=== PATIENT | male | born 1930 | race Caucasian/White ===

== ENCOUNTER 2018-05-13 12:25 | Outpatient (CLI) | payer SELFPAY | END 2018-05-13 12:26 | disposition EMS.NT | LOC: EMS 12:25 | PROVIDERS: ATTEND Surgery | DX: R45.851 Suicidal ideations (principal) ==

== ENCOUNTER 2018-07-27 11:38 | Emergency (ER) | payer MEDICARE ==
[2018-07-27 12:20] LABS: BASOPHILS # (AUTO) 0.1 10^3/uL (0.0-0.1); BASOPHILS % (AUTO) 0.6 %; EOSINOPHILS % (AUTO) 0.2 %; HGB - HEMOGLOBIN 14.7 g/dL (14.0-18.0); LYMPHOCYTES # (AUTO) 0.7 10^3/uL (1.5-3.5); LYMPHOCYTES % (AUTO) 7.6 %; MEAN CORPUSCULAR HEMOGLOBIN 33.8 pg (27.0-31.0); MEAN CORPUSCULAR HGB CONC 33.4 g/dL (32.0-36.0); MEAN PLATELET VOLUME 8.4 fL (7.4-11.4); MONOCYTES # (AUTO) 0.7 10^3/uL (0.0-1.0); MONOCYTES % (AUTO) 8.2 %; NEUTROPHILS # (AUTO) 7.6 10^3/uL (1.5-6.6); NEUTROPHILS % (AUTO) 83.4 %; PLT - PLATELET COUNT 243 10^3/uL (130-450); RED BLOOD COUNT 4.35 10^6/uL (4.70-6.10); RED CELL DISTRIBUTION WIDTH 13.8 % (12.0-15.0); WHITE BLOOD COUNT 9.1 x10^3/uL (4.8-10.8)
--- NOTE | 2018-07-27 12:25 | ED Physician Documentation ---
PD HPI CHEST PAIN - Stated complaint Stated Complaint: SOA, CHEST PX - Chief complaint Chief Complaint: Cardiac - History obtained from History obtained from: Patient - History of Present Illness Timing - onset: Other (This is an 88-year-old gentleman with no personal history of heart disease although he is a strong family history of such and had 2 brothers that in their 50s of heart disease. He is been short of breath for a week, it is worse when laying flat and since yesterday he said pretty constant chest pain since noon yesterday that is also worse when rate lying flat. Severe but declines pain medication for it. He describes it as a sharp pain radiating straight through to the back. There is no associated cough. He denies exertional pain. He does feel like he is not getting enough oxygen. He has had pedal edema that is symmetric for about a day.) Review of Systems Ten Systems: 10 systems reviewed and negative Constitutional: denies: Fever, Chills Nose: denies: Rhinorrhea / runny nose, Congestion Throat: denies: Sore throat Cardiac: reports: Chest pain / pressure, Pedal edema. denies: Palpitations, Calf pain Respiratory: reports: Dyspnea. denies: Cough PD PAST MEDICAL HISTORY - Past Medical History Past Medical History: Yes Cardiovascular: Hypertension, High cholesterol Musculoskeletal: Chronic back pain - Past Surgical History Ortho: Spine surgery - Allergies Allergies/Adverse Reactions: Allergies Allergy/AdvReac Type Severity Reaction Status Date / Time No Known Drug Allergies Allergy Verified 07/27/18 11:53 - Living Situation Living Situation: reports: Alone - Social History Does the pt smoke?: No Does the pt drink ETOH?: No Does the pt have substance abuse?: No - Family History Family history: reports: CAD PD ED PE NORMAL - Vitals Vital signs reviewed: Yes - General General: Alert and oriented X 3, No acute distress - HEENT HEENT: PERRL, EOMI - Neck Neck: Supple, no meningeal sign, No bony TTP - Cardiac Cardiac: Other (Frequent extrasystoles with a 2 out of 6 decrescendo holosystolic murmur heard best at the left lower sternal border) - Respiratory Respiratory: No respiratory distress, Other (Mild rales at both bases) - Abdomen Abdomen: Soft, Non tender - Back Back: No CVA TTP, No spinal TTP - Derm Derm: Normal color, Warm and dry - Extremities Extremities: Other (Mild pitting pedal edema to the ankles, symmetric) - Neuro Neuro: Alert and oriented X 3, Normal speech Results - Vitals Vitals: Vital Signs - 24 hr 07/27/18 07/27/18 07/27/18 11:49 12:02 12:41 Temperature 36.9 C Heart Rate 67 94 Respiratory 16 27 H Rate Blood Pressure 156/82 H 164/91 H Blood Pressure 147/111 H [Right] O2 Saturation 94 94 07/27/18 07/27/18 07/27/18 13:14 13:44 14:07 Temperature Heart Rate 92 76 85 Respiratory 20 16 21 Rate Blood Pressure 147/111 H 152/93 H 149/94 H Blood Pressure [Right] O2 Saturation 98 98 96 07/27/18 07/27/18 07/27/18 14:30 15:06 15:49 Temperature Heart Rate 74 75 74 Respiratory 16 21 18 Rate Blood Pressure 143/91 H 136/82 H 154/88 H Blood Pressure [Right] O2 Saturation 96 98 98 Oxygen O2 Source Room air - EKG (time done) 1149 Rate: Rate (enter#) (108) Rhythm: NSR (with PAC and PVCs) Intervals: Other (LAFB) Ischemia: Non specific changes (Some ischemic biphasic T waves mostly V2 through V4, no priors available.) Computer interpretation: Agree with computer - Labs Labs: Laboratory Tests 07/27/18 07/27/18 07/27/18 12:03 12:03 12:03 WBC 9.1 RBC 4.35 L Hgb 14.7 Hct 43.9 MCV 101.0 H MCH 33.8 H MCHC 33.4 RDW 13.8 Plt Count 243 MPV 8.4 Neut # (Auto) 7.6 H Lymph # (Auto) 0.7 L [place] # (Auto) 0.7 Eos # (Auto) 0.0 Baso # (Auto) 0.1 Absolute Nucleated RBC 0.00 Nucleated RBC % 0.0 Manual Slide Review Indicated Platelet Estimate NORMAL (130-450,000) Platelet Morphology RARE GIANT PLATELETS RBC Morph Micro Appear NORMAL APPEARANCE Sodium 137 Potassium 3.7 Chloride 96 L Carbon Dioxide 25 Anion Gap 16.0 H BUN 31 H Creatinine 1.3 H Estimated GFR (MDRD) 52 L Glucose 161 H Calcium 9.1 Total Bilirubin 1.9 H AST 150 H ALT 27 Alkaline Phosphatase 67 Troponin I 21.73 H* B-Natriuretic Peptide Total Protein 7.5 Albumin 3.8 Globulin 3.7 Albumin/Globulin Ratio 1.0 Lipase 23 Urine Color Urine Clarity Urine pH Ur Specific [place] Urine Protein Urine Glucose (UA) Urine Ketones Urine Occult Blood Urine Nitrite Urine Bilirubin Urine Urobilinogen Ur Leukocyte Esterase Urine RBC Urine WBC Ur Squamous Epith Cells Urine Bacteria Ur Microscopic Review Urine Culture Comments 07/27/18 07/27/18 12:03 14:05 WBC RBC Hgb Hct MCV MCH MCHC RDW Plt Count MPV Neut # (Auto) Lymph # (Auto) [place] # (Auto) Eos # (Auto) Baso # (Auto) Absolute Nucleated RBC Nucleated RBC % Manual Slide Review Platelet Estimate Platelet Morphology RBC Morph Micro Appear Sodium Potassium Chloride Carbon Dioxide Anion Gap BUN Creatinine Estimated GFR (MDRD) Glucose Calcium Total Bilirubin AST ALT Alkaline Phosphatase Troponin I B-Natriuretic Peptide 1349 H Total Protein Albumin Globulin Albumin/Globulin Ratio Lipase Urine Color YELLOW Urine Clarity CLEAR Urine pH 6.0 Ur Specific [place] 1.020 Urine Protein 30 H Urine Glucose (UA) NEGATIVE Urine Ketones 15 H Urine Occult Blood TRACE-INTA Urine Nitrite NEGATIVE Urine Bilirubin NEGATIVE Urine Urobilinogen 0.2 (NORMAL) Ur Leukocyte Esterase NEGATIVE Urine RBC 0-5 Urine WBC 0-3 Ur Squamous Epith Cells NONE SEEN Urine Bacteria Few Ur Microscopic Review INDICATED Urine Culture Comments NOT INDICATED - Rads (name of study) 1v chest Radiology: EMP read contemporaneously (Small right pleural effusion, mild CHF. Nodular density left lateral lung base up to 2.3 cm, needs follow-up.) PD MEDICAL DECISION MAKING - ED course ED course: This is an 88-year-old gentleman who is had several days worth of shortness of breath which proceeded chest pain which is been going on for about 24 hours fairly constantly now. Its a sharp pain radiating to the back. His EKG is isc hemic but not a STEMI. He has a murmur, he says he was aware of a murmur as a child so it is not clear if this is new or old. Aortic dissection is considered but given the height of the troponin and lack of wide mediastinum on x-ray this is considered much less likely and is treated medically for non-STEMI pending transfer to a cardiac capable facility. Spoke with Dr. Murray, cardiology at [facility] and she will see in consult, defers to the medicine service there for admission. Agrees with current management.. Accepted by Dr. Lund to the hospitalist service at [facility]. He is stable for transfer. Cobras were completed. He received heparin bolus and drip, aspirin, oral metoprolol and Nitropaste. I was notified shortly thereafter that [facility] could not accept this gentleman due to some staffing issues and [facility] was called. Spoke with the tool analyst [facility], Dr. Jennings who will consult. Accepted by Dr. Howell to [facility] at 1330 and cobras were updated. However the patient did not want to go to [facility] there. He would like to be transferred to [place] and they were called at 134[address]. Sp[address] with [address] Kohler at [facility] who is accepting. He was pain-free after the above interventions. - Critical Care Time(min): 45 Time Includes: Direct patient care, Review records, Reassess patient, Document care, Coordinate care, Medical consult Procedures included in critical care time: Peripheral IV Procedures excluded from critical care time: EKG Departure - Departure Disposition: 02 Transfer Acute Care Hosp Clinical Impression: NSTEMI (non-ST elevated myocardial infarction), Pulmonary nodule Condition: Critical Discharge Date/Time: 07/27/18 16:05
[2018-07-27 12:32] LABS: ALBUMIN 3.8 g/dL (3.2-5.5); BILIRUBIN,TOTAL 1.9 mg/dL (0.2-1.0); CALCIUM 9.1 mg/dL (8.5-10.3); CREATININE 1.3 mg/dL (0.6-1.2); TOTAL PROTEIN 7.5 g/dL (6.7-8.2)
[2018-07-27 12:34] LABS: PLATELET ESTIMATE, MANUAL NORMAL (130-450,000) (NORMAL); PLATELET MORPHOLOGY RARE GIANT PLATELETS (NORMAL); RBC MORPHOLOGY (MULTIPLE) NORMAL APPEARANCE (NORMAL)
--- NOTE | 2018-07-27 12:39 | XRAY Report ---
Reason: chest pain Procedure Date: 07/27/2018 Accession Number: [id number] / [id number] Procedure: XR - Chest 1 View X-Ray CPT Code: 77644 FULL RESULT: EXAM: CHEST RADIOGRAPHY EXAM DATE: 07/27/2018 12:11 PM. CLINICAL HISTORY: Chest pain. COMPARISON: None. TECHNIQUE: 1 view. FINDINGS: Lungs/Pleura: Mild vascular and interstitial prominence with mild increase in bibasilar markings and possible small right pleural effusion. There are focal nodular irregular densities at the left lateral lung base with a dominant 2.3 cm focus. A left lower perihilar nodular density could be vascular in nature but pulmonary nodule or central mass/adenopathy are not excluded. No pneumothorax. Mediastinum: The heart is enlarged. Other: None. IMPRESSION: 1. Mild vascular and interstitial prominence, mild bibasilar opacity, probable very small right pleural effusion and mild cardiac enlargement demonstrated. CHF could be considered. 2. Irregular nodular densities at the left lateral lung base measure up to 2.3 cm. Possible left infrahilar nodular density, as discussed above. Short-term radiographic follow-up could be performed to confirm resolution. If the findings do not resolve, or if further evaluation were indicated at this time, chest CT imaging with contrast would be recommended. RADIA
[2018-07-27] MEDS ORDERED: HEPARIN 25000UNITS/500ML (D5W) 25,000 UNIT/500 ML BAG IV STA (12:42)
[2018-07-27] MEDS ORDERED: METOPROLOL TARTRATE 50 MG TABLET PO STA (12:42)
[2018-07-27] MEDS ORDERED: HEPARIN 5,000 UNIT/ML VIAL IVP STA (12:42)
[2018-07-27] MEDS ORDERED: NITROGLYCERIN 2% PASTE TOP STA (12:42)
[2018-07-27] MEDS ORDERED: IOVERSOL 320 100 ML VIAL IVP ONE (12:42)
[2018-07-27] MEDS ORDERED: ASPIRIN CHEW 81 MG TABLET PO STA (12:42)
[2018-07-27] MEDS ORDERED: FUROSEMIDE 20 MG/2 ML VIAL IVP STA (12:48)
[2018-07-27 14:15] LABS: BILIRUBIN,URINE NEGATIVE (NEGATIVE); GLUCOSE, URINE (UA) NEGATIVE (NEGATIVE); KETONES,URINE (UA) 15 mg/dL (NEGATIVE); LEUKOCYTE ESTERASE, URINE NEGATIVE (NEGATIVE); NITRITE,URINE NEGATIVE (NEGATIVE); OCCULT BLOOD,URINE TRACE-INTA (NEGATIVE); PROTEIN,URINE 30 mg/dL (NEGATIVE); UROBILINOGEN,URINE 0.2 (NORMAL) E.U./dL (NORMAL)
[2018-07-27 14:16] LABS: CLARITY,URINE CLEAR (CLEAR)
[2018-07-27 14:25] LABS: BACTERIA,URINE Few /HPF (None Seen); RBC,URINE 0-5 /HPF (0-5); SQUAMOUS EPITHELIAL CELL,UR NONE SEEN (<= Few)
[2018-07-27 15:50] VITALS: BP 154/88
== END 2018-07-27 16:05 | disposition short-term general hospital (02) ==
LOC: ED 11:38
DX: I21.4 Non-ST elevation (NSTEMI) myocardial infarction (principal); R91.1 Solitary pulmonary nodule; I10 Essential (primary) hypertension
CPT/HCPCS: 36415; 71045; 80053; 81001; 83690; 83880; 84484; 85025; 93005; 96374; 96375; 99284; 99291; A9270; 81003; 87086

== ENCOUNTER 2018-08-19 14:45 | Outpatient (CLI) | payer MEDICARE ==
[2018-08-19 18:47] LABS: CREATININE 1.2 mg/dL (0.6-1.2)
[2018-08-19 18:49] LABS: HGB - HEMOGLOBIN 13.8 g/dL (14.0-18.0); MEAN CORPUSCULAR HEMOGLOBIN 34.3 pg (27.0-31.0); MEAN CORPUSCULAR HGB CONC 33.6 g/dL (32.0-36.0); MEAN CORPUSCULAR VOLUME 102.1 fL (80.0-94.0); MEAN PLATELET VOLUME 9.6 fL (7.4-11.4); RED BLOOD COUNT 4.02 10^6/uL (4.70-6.10); RED CELL DISTRIBUTION WIDTH 13.6 % (12.0-15.0); WHITE BLOOD COUNT 6.9 x10^3/uL (4.8-10.8)
== END 2018-08-19 14:46 | disposition home or self-care (01) ==
LOC: LAB.WCP 14:45
PROVIDERS: ATTEND Family Medicine
DX: I50.9 Heart failure, unspecified (principal)
CPT/HCPCS: 36415; 80048; 83880; 85027

== ENCOUNTER 2018-09-04 11:27 | Outpatient (CLI) | payer MEDICARE ==
[2018-09-04 19:08] LABS: HGB - HEMOGLOBIN 13.1 g/dL (14.0-18.0); MEAN CORPUSCULAR HEMOGLOBIN 33.7 pg (27.0-31.0); MEAN CORPUSCULAR HGB CONC 31.3 g/dL (32.0-36.0); MEAN CORPUSCULAR VOLUME 107.5 fL (80.0-94.0); MEAN PLATELET VOLUME 11.1 fL (7.4-11.4); RED BLOOD COUNT 3.89 10^6/uL (4.70-6.10); RED CELL DISTRIBUTION WIDTH 13.9 % (12.0-15.0); WHITE BLOOD COUNT 6.3 x10^3/uL (4.8-10.8)
[2018-09-04 19:53] LABS: CREATININE 1.3 mg/dL (0.6-1.2)
== END 2018-09-04 11:28 | disposition home or self-care (01) ==
LOC: LAB.WCP 11:27
PROVIDERS: ATTEND Family Medicine
DX: R06.09 Other forms of dyspnea (principal)
CPT/HCPCS: 36415; 80048; 83880; 85027

== ENCOUNTER 2018-10-21 08:00 | Outpatient (CLI) | payer MEDICARE ==
[2018-10-21 19:20] LABS: ABSOLUTE RETICS # AUTO 0.054 10^6/uL (0.020-0.110); BASOPHILS % (AUTO) 0.6 %; EOSINOPHILS # (AUTO) 0.1 10^3/uL (0.0-0.7); EOSINOPHILS % (AUTO) 2.6 %; HGB - HEMOGLOBIN 12.7 g/dL (14.0-18.0); LYMPHOCYTES % (AUTO) 17.5 %; MEAN CORPUSCULAR HEMOGLOBIN 34.6 pg (27.0-31.0); MEAN CORPUSCULAR VOLUME 108.2 fL (80.0-94.0); MEAN PLATELET VOLUME 10.4 fL (7.4-11.4); MONOCYTES # (AUTO) 0.8 10^3/uL (0.0-1.0); MONOCYTES % (AUTO) 15.1 %; NEUTROPHILS # (AUTO) 3.5 10^3/uL (1.5-6.6); NEUTROPHILS % (AUTO) 63.8 %; PLT - PLATELET COUNT 218 10^3/uL (130-450); RED BLOOD COUNT 3.67 10^6/uL (4.70-6.10); RED CELL DISTRIBUTION WIDTH 14.2 % (12.0-15.0); WHITE BLOOD COUNT 5.4 x10^3/uL (4.8-10.8)
[2018-10-21 19:34] LABS: CALCIUM 9.2 mg/dL (8.5-10.3); CREATININE 1.3 mg/dL (0.6-1.2)
[2018-10-21 19:50] LABS: FERRITIN 129.4 ng/mL (23.9-336.2)
[2018-10-21 19:53] LABS: FOLATE 16.91 ng/mL (5.90 - >24.8)
== END 2018-10-21 23:59 | disposition home or self-care (01) ==
LOC: LAB.N 08:00
PROVIDERS: ATTEND Family Medicine
DX: D64.9 Anemia, unspecified (principal); I38 Endocarditis, valve unspecified; I50.9 Heart failure, unspecified; R06.09 Other forms of dyspnea
CPT/HCPCS: 36415; 80048; 82607; 82728; 82746; 83540; 83880; 84466; 85025; 85027; 85044

== ENCOUNTER 2018-12-12 12:05 | Outpatient (CLI) | payer MEDICARE, OTHER ==
[2018-12-12 18:54] LABS: HGB - HEMOGLOBIN 12.6 g/dL (14.0-18.0); MEAN CORPUSCULAR HEMOGLOBIN 34.6 pg (27.0-31.0); MEAN CORPUSCULAR HGB CONC 32.4 g/dL (32.0-36.0); MEAN CORPUSCULAR VOLUME 106.9 fL (80.0-94.0); MEAN PLATELET VOLUME 10.8 fL (7.4-11.4); RED BLOOD COUNT 3.64 10^6/uL (4.70-6.10); RED CELL DISTRIBUTION WIDTH 13.5 % (12.0-15.0); WHITE BLOOD COUNT 5.7 x10^3/uL (4.8-10.8)
[2018-12-12 19:18] LABS: CALCIUM 9.3 mg/dL (8.5-10.3); CREATININE 1.5 mg/dL (0.6-1.2)
== END 2018-12-12 23:59 | disposition home or self-care (01) ==
LOC: LAB.N 12:05
PROVIDERS: ATTEND Family Medicine
DX: I38 Endocarditis, valve unspecified (principal); R06.09 Other forms of dyspnea
CPT/HCPCS: 36415; 80048; 83880; 85027

== ENCOUNTER 2019-01-02 10:47 | Outpatient (CLI) | payer MEDICARE, OTHER ==
[2019-01-02 12:10] LABS: MEAN CORPUSCULAR HEMOGLOBIN 34.1 pg (27.0-31.0); MEAN CORPUSCULAR HGB CONC 32.2 g/dL (32.0-36.0); MEAN PLATELET VOLUME 10.4 fL (7.4-11.4); RED BLOOD COUNT 3.81 10^6/uL (4.70-6.10); RED CELL DISTRIBUTION WIDTH 14.6 % (12.0-15.0); WHITE BLOOD COUNT 4.9 x10^3/uL (4.8-10.8)
[2019-01-02 12:23] LABS: CALCIUM 9.1 mg/dL (8.5-10.3); CREATININE 1.8 mg/dL (0.6-1.2)
== END 2019-01-02 23:59 | disposition home or self-care (01) ==
LOC: LAB.N 10:47
PROVIDERS: ATTEND Family Medicine
DX: R06.09 Other forms of dyspnea (principal)
CPT/HCPCS: 36415; 80048; 83880; 85027

== ENCOUNTER 2019-01-17 14:45 | Emergency (ER) | payer MEDICARE, OTHER ==
--- NOTE | 2019-01-17 15:16 | ED Physician Documentation ---
PD HPI CHEST PAIN - Stated complaint Stated Complaint: SOA, LE SWELLING, ABD PX - Chief complaint Chief Complaint: Cardiac - History obtained from History obtained from: Patient - History of Present Illness Timing - onset: Other (This is an 88-year-old gentleman who I sent to the [place] about 5 months ago for CHF. I will try to get the discharge summary, but per his description he had some sort of valvular disease, he has not had any intervention yet but he was referred to a Dr. Hanson in [place] who at least online looks like he is a TAVR specialist. Over the last 6 days he is gained a pound a day, he has shortness of breath at rest and orthopnea as well as significant pedal edema abdominal edema as well. He denies any chest pain.) Review of Systems Ten Systems: 10 systems reviewed and negative Constitutional: reports: Fatigue Nose: denies: Rhinorrhea / runny nose Throat: denies: Sore throat Cardiac: reports: Pedal edema, Calf pain. denies: Chest pain / pressure, Palpitations Respiratory: reports: Dyspnea. denies: Cough GI: reports: Abdominal Swelling. denies: Abdominal Pain PD PAST MEDICAL HISTORY - Past Medical History Cardiovascular: Hypertension, High cholesterol Respiratory: None Neuro: None Endocrine/Autoimmune: None GI: None : None HEENT: None Psych: None Musculoskeletal: Chronic back pain Derm: None - Past Surgical History Past Surgical History: Yes Ortho: Spine surgery - Present Medications Home Medications: Ambulatory Orders Medication Instructions Recorded Confirmed Apixaban [Eliquis] 2.5 mg PO BID 01/17/19 01/17/19 Aspirin 81 mg PO DAILY 01/17/19 01/17/19 Atorvastatin Calcium [Lipitor] 80 mg PO DAILY PM 01/17/19 01/17/19 Furosemide 1.5 tab PO BID 01/17/19 01/17/19 Gabapentin 2 cap PO DAILY PM 01/17/19 01/17/19 Potassium Gluconate 99 mg PO DAILY 01/17/19 01/17/19 Tamsulosin HCl [Flomax] 2 cap PO DAILY PM 01/17/19 01/17/19 metOLazone [Metolazone] 2.5 mg PO UD 01/17/19 01/17/19 - Allergies Allergies/Adverse Reactions: Allergies Allergy/AdvReac Type Severity Reaction Status Date / Time No Known Drug Allergies Allergy Verified 01/17/19 14:51 - Social History Does the pt smoke?: No Smoking Status: Never smoker Does the pt drink ETOH?: No Does the pt have substance abuse?: No - Family History Family history: reports: Non contributory - Immunizations Immunizations are current?: Yes - POLST Patient has POLST: No PD ED PE NORMAL - Vitals Vital signs reviewed: Yes - General General: Alert and oriented X 3, No acute distress, Other (Looks younger than stated age) - HEENT HEENT: PERRL, EOMI - Neck Neck: Supple, no meningeal sign, No bony TTP, Other (Significant JVD up to the angle of the jaw) - Cardiac Cardiac: Other (Somewhat diminished heart sounds with a regular rate,Subtle systolic decrescendo murmur) - Respiratory Respiratory: Other (Diminished at the bases with rales at the bases) - Abdomen Abdomen: Non tender, Other (mod distended) - Extremities Extremities: Other (3+ symmetric pitting pedal edema) - Neuro Neuro: Alert and oriented X 3, Normal speech Results - Vitals Vitals: Vital Signs - 24 hr 01/17/19 01/17/19 14:47 16:20 Temperature 36.8 C Heart Rate 91 92 Respiratory 20 22 Rate Blood Pressure 124/81 H 126/77 O2 Saturation 95 98 Oxygen O2 Source Room air - EKG (time done) 1500 Rate: Rate (enter#) Rhythm: NSR (with occ pvc) [place]: Normal Intervals: Prolonged OR QRS: Normal, Low voltage Ischemia: Non specific changes (Flat T waves throughout, small inferior and anterior Q waves.). No: ST elevation c/w ischemia Computer interpretation: Agree with computer - Labs Labs: Laboratory Tests 01/17/19 01/17/19 01/17/19 15:36 15:36 15:36 WBC 5.8 RBC 3.81 L Hgb 13.2 L Hct 40.6 L MCV 106.6 H MCH 34.6 H MCHC 32.5 RDW 15.1 H Plt Count 172 MPV 10.3 Neut # (Auto) 4.3 Lymph # (Auto) 0.8 L [place] # (Auto) 0.6 Eos # (Auto) 0.1 Baso # (Auto) 0.0 Absolute Nucleated RBC 0.00 Nucleated RBC % 0.0 Sodium 138 Potassium 3.8 Chloride 96 L Carbon Dioxide 31 Anion Gap 11.0 BUN 42 H Creatinine 1.8 H Estimated GFR (MDRD) 36 L Glucose 142 H Calcium 9.1 Total Bilirubin 2.1 H AST 38 ALT 24 Alkaline Phosphatase 99 Troponin I High Sens 37.8 H* B-Natriuretic Peptide Total Protein 7.5 Albumin 3.9 Globulin 3.6 Albumin/Globulin Ratio 1.1 Lipase 32 01/17/19 15:36 WBC RBC Hgb Hct MCV MCH MCHC RDW Plt Count MPV Neut # (Auto) Lymph # (Auto) [place] # (Auto) Eos # (Auto) Baso # (Auto) Absolute Nucleated RBC Nucleated RBC % Sodium Potassium Chloride Carbon Dioxide Anion Gap BUN Creatinine Estimated GFR (MDRD) Glucose Calcium Total Bilirubin AST ALT Alkaline Phosphatase Troponin I High Sens B-Natriuretic Peptide 1978 H Total Protein Albumin Globulin Albumin/Globulin Ratio Lipase - Rads (name of study) 1v chest Radiology: EMP read contemporaneously (Cardiomegaly with bilateral effusions and evidence of edema and heart failure) PD MEDICAL DECISION MAKING - ED course ED course: Records from [facility] received and reviewed, discharge summary from August 03 of this year. Echocardiogram showed moderate left ear and EF 40%. Cardiac cath initially showed three-vessel disease, CT surgery was consulted for possible CABG and aortic valve replacement and felt he was not a good open surgical candidate. Went to catheterization again later after medical management which showed resolution of LAD disease and improvement in left main disease and did not need stenting. He was diuresed in the hospital. Later left heart cath was concerning for severe aortic stenosis with an aortic valve area of 0.2 cm. Plan was for TAVR at a later date, he needed a stress echo after that and it sounds like he was lost to follow-up after that. 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 Moderate circumflex disease with adequate IFR, severely elevated LVEDP at 23 mmHg. 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 I gave him a small dose of Lasix not wanting to confuse his hemodynamics too much or cause him decompensation. [facility] was called to help us arrange for transfer at 4:05 PM. Troponin noted, this is an inconsequential amount compared to the troponin he had in July of this year, in the interim we have converted to high-sensitivity troponin. His troponin in July was 21.73 ng/ml, today it is 37 pg/mL. Spoke with Dr. Kwan at [facility], he will try to arrange for a bed in [place]. We initially spoke at 4:[address] Maher to [facility] at 5 PM and cobras were completed. He is stable for transport to a higher level of care for cardiology consultation. Departure - Departure Disposition: 02 Transfer Acute Care Hosp Clinical Impression: Congestive heart failure Qualifiers: Heart failure type: systolic Heart failure chronicity: acute on chronic Qualified Code(s): I50.23 - Acute on chronic systolic (congestive) heart failure Aortic stenosis Qualifiers: Cardiac valve disease etiology: nonrheumatic Qualified Code(s): I35.0 - Nonrheumatic aortic (valve) stenosis Condition: Serious
[2019-01-17] MEDS ORDERED: FUROSEMIDE 20 MG/2 ML VIAL IVP STA (15:21)
[2019-01-17 15:41] LABS: BASOPHILS % (AUTO) 0.3 %; EOSINOPHILS # (AUTO) 0.1 10^3/uL (0.0-0.7); EOSINOPHILS % (AUTO) 1.6 %; HGB - HEMOGLOBIN 13.2 g/dL (14.0-18.0); LYMPHOCYTES # (AUTO) 0.8 10^3/uL (1.5-3.5); LYMPHOCYTES % (AUTO) 13.5 %; MEAN CORPUSCULAR HEMOGLOBIN 34.6 pg (27.0-31.0); MEAN CORPUSCULAR HGB CONC 32.5 g/dL (32.0-36.0); MEAN CORPUSCULAR VOLUME 106.6 fL (80.0-94.0); MEAN PLATELET VOLUME 10.3 fL (7.4-11.4); MONOCYTES # (AUTO) 0.6 10^3/uL (0.0-1.0); MONOCYTES % (AUTO) 10.7 %; NEUTROPHILS # (AUTO) 4.3 10^3/uL (1.5-6.6); NEUTROPHILS % (AUTO) 73.6 %; PLT - PLATELET COUNT 172 10^3/uL (130-450); RED BLOOD COUNT 3.81 10^6/uL (4.70-6.10); RED CELL DISTRIBUTION WIDTH 15.1 % (12.0-15.0); WHITE BLOOD COUNT 5.8 x10^3/uL (4.8-10.8)
--- NOTE | 2019-01-17 15:51 | XRAY Report ---
Reason: CHF Procedure Date: 01/17/2019 Accession Number: [id number] / [id number] Procedure: XR - Chest 1 View X-Ray CPT Code: 52885 Final Report FULL RESULT: EXAM: CHEST RADIOGRAPHY EXAM DATE: 01/17/2019 03:33 PM. CLINICAL HISTORY: Dyspnea. COMPARISON: CHEST 1 VIEW 07/27/2018 11:57 AM. TECHNIQUE: 1 view. FINDINGS: Lungs/Pleura: There is perihilar and lower lung opacity. There are bilateral pleural effusions. There is no evidence of pneumothorax. Mediastinum: There is cardiomegaly. Other: None. IMPRESSION: 1. There is cardiomegaly. 2. There is perihilar and lower lung opacity. There are bilateral effusions. 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 3. There is no evidence of pneumothorax. RADIA
[2019-01-17 15:54] LABS: ALBUMIN 3.9 g/dL (3.2-5.5); ALBUMIN/GLOBULIN RATIO 1.1 (1.0-2.2); BILIRUBIN,TOTAL 2.1 mg/dL (0.2-1.0); CALCIUM 9.1 mg/dL (8.5-10.3); CREATININE 1.8 mg/dL (0.6-1.2); TOTAL PROTEIN 7.5 g/dL (6.7-8.2)
[2019-01-17 19:06] VITALS: BP 127/84
== END 2019-01-17 19:22 | disposition short-term general hospital (02) ==
LOC: ED 14:45
DX: I50.23 Acute on chronic systolic (congestive) heart failure (principal); I35.0 Nonrheumatic aortic (valve) stenosis; I44.0 Atrioventricular block, first degree; I10 Essential (primary) hypertension; E78.00 Pure hypercholesterolemia, unspecified; Z79.82 Long term (current) use of aspirin
CPT/HCPCS: 36415; 71045; 80053; 83690; 83880; 84484; 85025; 93005; 96374; 99285

== ENCOUNTER 2019-02-05 13:21 | Outpatient (CLI) | payer MEDICARE ==
[2019-02-05 18:44] LABS: HGB - HEMOGLOBIN 12.2 g/dL (14.0-18.0); MEAN CORPUSCULAR HEMOGLOBIN 34.8 pg (27.0-31.0); MEAN CORPUSCULAR HGB CONC 31.9 g/dL (32.0-36.0); MEAN CORPUSCULAR VOLUME 108.8 fL (80.0-94.0); RED BLOOD COUNT 3.51 10^6/uL (4.70-6.10); RED CELL DISTRIBUTION WIDTH 14.6 % (12.0-15.0); WHITE BLOOD COUNT 5.2 x10^3/uL (4.8-10.8)
[2019-02-05 18:51] LABS: CALCIUM 8.7 mg/dL (8.5-10.3); CREATININE 1.8 mg/dL (0.6-1.2)
== END 2019-02-05 23:59 | disposition home or self-care (01) ==
LOC: LAB.N 13:21
PROVIDERS: ATTEND Family Medicine
DX: I50.9 Heart failure, unspecified (principal)
CPT/HCPCS: 36415; 80048; 83880; 85027

== ENCOUNTER 2019-03-10 08:26 | Outpatient (CLI) | payer MEDICARE ==
[2019-03-10 15:50] LABS: HGB - HEMOGLOBIN 12.1 g/dL (14.0-18.0); MEAN CORPUSCULAR HEMOGLOBIN 33.7 pg (27.0-31.0); MEAN CORPUSCULAR HGB CONC 30.9 g/dL (32.0-36.0); MEAN CORPUSCULAR VOLUME 108.9 fL (80.0-94.0); MEAN PLATELET VOLUME 10.7 fL (7.4-11.4); RED BLOOD COUNT 3.59 10^6/uL (4.70-6.10); RED CELL DISTRIBUTION WIDTH 14.3 % (12.0-15.0); WHITE BLOOD COUNT 4.6 x10^3/uL (4.8-10.8)
[2019-03-10 16:33] LABS: CALCIUM 8.7 mg/dL (8.5-10.3); CREATININE 1.7 mg/dL (0.6-1.2)
== END 2019-03-10 23:59 | disposition home or self-care (01) ==
LOC: LAB.N 08:26
PROVIDERS: ATTEND Family Medicine
DX: N18.3 Chronic kidney disease, stage 3 (moderate) (principal); I50.9 Heart failure, unspecified
CPT/HCPCS: 36415; 80048; 83880; 85027

== ENCOUNTER 2019-03-19 14:10 | Outpatient (CLI) | payer MEDICARE ==
--- NOTE | 2019-03-19 15:58 | XRAY Report ---
Reason: KNEE PAIN Procedure Date: 03/19/2019 Accession Number: [id number] / [id number] Procedure: XRN - Knee 3 View LT CPT Code: Final Report FULL RESULT: EXAM: LEFT KNEE RADIOGRAPHY EXAM DATE: 03/19/2019 02:43 PM. CLINICAL HISTORY: Knee pain. COMPARISON: None. TECHNIQUE: 3 views. FINDINGS: Bones: Normal. No fractures or bone lesions. Joints: There is a small joint effusion without dislocation. Mild spurring is seen along the medial margin of the patella. Soft Tissues: Normal. No soft tissue swelling. IMPRESSION: Joint effusion without acute fracture or dislocation. RADIA
== END 2019-03-19 14:11 | disposition home or self-care (01) ==
LOC: DI.N 14:10
PROVIDERS: ATTEND Family Medicine
DX: M25.462 Effusion, left knee (principal); M25.562 Pain in left knee

== ENCOUNTER 2019-03-20 11:37 | Outpatient (CLI) | payer MEDICARE ==
[2019-03-20 18:42] LABS: MEAN CORPUSCULAR HEMOGLOBIN 34.6 pg (27.0-31.0); MEAN CORPUSCULAR VOLUME 108.1 fL (80.0-94.0); MEAN PLATELET VOLUME 10.8 fL (7.4-11.4); RED BLOOD COUNT 3.47 10^6/uL (4.70-6.10); RED CELL DISTRIBUTION WIDTH 14.8 % (12.0-15.0); WHITE BLOOD COUNT 9.2 x10^3/uL (4.8-10.8)
[2019-03-20 18:44] LABS: CALCIUM 8.9 mg/dL (8.5-10.3); CREATININE 1.8 mg/dL (0.6-1.2)
== END 2019-03-20 23:59 | disposition home or self-care (01) ==
LOC: LAB.N 11:37
PROVIDERS: ATTEND Family Medicine
DX: I50.9 Heart failure, unspecified (principal)
CPT/HCPCS: 36415; 80048; 83880; 85027

== ENCOUNTER 2019-05-01 09:15 | Outpatient (CLI) | payer MEDICARE ==
--- NOTE | 2019-05-01 10:44 | XRAY Report ---
Reason: FOOT/HEEL PAIN Procedure Date: 05/01/2019 Accession Number: [id number] / [id number] Procedure: XRN - Foot 3 View BILAT CPT Code: Addended Final Report FULL RESULT: EXAMS: BILATERAL FOOT RADIOGRAPH, 3 VIEWS EACH EXAM DATE: 05/01/2019 09:47 AM. CLINICAL HISTORY: Foot/heel pain. COMPARISON: KNEE 3 VIEW LT 03/19/2019 2:48 PM. TECHNIQUE: Frontal, lateral and oblique views each foot. FINDINGS: Right: Bones: Mild to moderate hypertrophic changes, chronic in appearance. Small areas of lucency at the bases of the fourth and fifth toes, chronic in appearance. No fractures or acute bone lesions. Joints: Mild joint space narrowing at the first MTP joint with mild to moderate narrowing of the IP joints, first through fifth digits. No subluxations or joint effusions. Soft Tissues: Normal. No soft tissue swelling. Left: Bones: Mild to moderate hypertrophic changes, chronic in appearance. Small areas of lucency at the bases of the fourth and fifth toes, chronic in appearance. No fractures or acute bone lesions. Joints: Moderate joint space narrowing at the first MTP joint with mild to moderate narrowing of the IP joints, first through fifth digits. No subluxations or joint effusions. Soft Tissues: Normal. No soft tissue swelling. IMPRESSION: No acute process or posttraumatic abnormality. Multilevel degenerative disk disease, as discussed above, slightly greater on the right. No subluxations or joint effusion. RADIA ADDENDUM: 05/08/19 11:12 CORRECTION: Second paragraph of the impression should read: Multilevel degenerative JOINT disease, as discussed above, slightly greater on the right. No subluxations or joint effusion.
== END 2019-05-01 09:16 | disposition home or self-care (01) ==
LOC: DI.N 09:15
PROVIDERS: ATTEND Family Medicine
DX: M19.072 Primary osteoarthritis, left ankle and foot (principal); M19.071 Primary osteoarthritis, right ankle and foot